=== PATIENT | female | born 1950 | race Caucasian/White ===

== ENCOUNTER → 2018-04-03 | Outpatient (CLI) | payer MEDICARE | END | disposition home or self-care (01) | LOC: PCVCCLINIC 14:45 | PROVIDERS: ATTEND Internal Medicine | DX: I48.0 Paroxysmal atrial fibrillation (principal); I10 Essential (primary) hypertension; K21.9 Gastro-esophageal reflux disease without esophagitis; Z79.899 Other long term (current) drug therapy | CPT/HCPCS: 93005; G0463 ==

== ENCOUNTER → 2018-04-16 | Outpatient (CLI) | payer MEDICARE ==
[~2018-04-16] MED LIST: REGADENOSON 0.4 MG/5 ML DISP.SYRIN. IV ONE
--- NOTE | 2018-04-16 10:00 | PCVCIMAG ---
APPROVED REPORT Study performed: 04/16/2018 08:05:19 EXAM: Comprehensive 2D, Doppler, and color-flow Echocardiogram Patient Location: Echo lab Status: routine BSA: 1.89 HR: 57 bpmBP: 130/100 mmHg Rhythm: NSR Other Information Study Quality: Good Risk Factors: Cardiac Risk Factors: HTN Indications Atrial Fibrillation Hypertension/HDD 2D Dimensions LVEF(%): 72.86 (>50%) IVSd: 12.00 (7-11mm)LVOT Diam: 20.65 (18-24mm) LVDd: 46.30 mm PWd: 9.16 (7-11mm)Ascending Ao: 38.74 (22-36mm) LVDs: 26.92 (25-40mm) Left Atrium: 49.06 (27-40mm) Aortic Root: 33.29 mm LV Single Plane 4CH: 62.64 % LV Single Plane 2CH: 61.34 %Pulido's LVEF: 61.99 % Biplane EF: 61.0 % Volumes Left Atrial Volume (Systole) Single Plane 4CH: 61.95 mLSingle Plane 2CH: 52.84 mL LA ESV Index: 32.00 mL/m2 Aortic Valve AoV Peak Kal.: 1.59 m/s AO Peak Gr.: 10.06 mmHgLVOT Max P.53 mmHg LVOT Max V: 0.94 m/s CORTNEY Vmax: 1.98 cm2 Mitral Valve E/A Ratio: 1.0 MV Decel. Time: 248.48 ms MV E Max Kal.: 1.06 m/s MV A Kal.: 1.05 m/s TDI E/Lateral E': 13.25E/Medial E': 13.25 Medial E' Kal.: 0.08 m/s Lateral E' Kal.: 0.08 m/s Pulmonary Vein P Vein S: 0.40 m/sP Vein A: 0.28 m/s P Vein D: 0.37 m/sP Vein A Dur.: 117.6 msec P Vein S/D Ratio: 1.08 Tricuspid Valve TR Peak Kal.: 2.20 m/s TR Peak Gr.: 19.33 mmHg Left Ventricle The left ventricle is normal size. There is normal LV segmental wall motion. There is normal left ventricular wall thickness. Left ventricular systolic function is normal. The left ventricular ejection fraction is within the normal range. LVEF is 60-65%. The left ventricular diastolic function is normal. Right Ventricle The right ventricle is normal size. The right ventricular systolic function is normal. Atria Left atrium is at the upper limits of normal. The right atrium size is normal. Aortic Valve The aortic valve is normal in structure. No aortic regurgitation is present. There is no aortic valvular stenosis. Mitral Valve The mitral valve is normal in structure. Mild mitral annular calcification. Trace mitral regurgitation. No evidence of mitral valve stenosis. Tricuspid Valve The tricuspid valve is normal in structure. Trace tricuspid regurgitation. Pulmonary artery pressure is 27mmhg. Pulmonic Valve The pulmonary valve is normal in structure. There is no pulmonic valvular regurgitation. Great Vessels The aortic root is normal in size. IVC is normal in size and collapses with >50% inspiration Pericardium There is no pericardial effusion. <Conclusion> The left ventricle is normal size. LVEF is 60-65%. The aortic valve is normal in structure. The mitral valve is normal in structure. Mild mitral annular calcification. Trace mitral regurgitation. The tricuspid valve is normal in structure. Trace tricuspid regurgitation. Pulmonary artery pressure is 27mmhg. The pulmonary valve is normal in structure. The aortic root is normal in size. There is no pericardial effusion.
--- NOTE | 2018-04-17 13:29 | PCVCIMAG ---
APPROVED REPORT Imaging Protocol: Rest Tc-99m/Stress Tc-99m 1 day Study performed: 04/16/2018 08:58:22 Indication: PAF Patient Location: Out-Patient Stress Nurse: KEY Pisano Tech:Jose Maria NMAARONB Ht: 5 ft 2 in Wt: 195 lbs BSA: 1.89 m2 HR: 71 bpm BP: 151/72 mmHg BMI: 35.6 Rhythm: SR, PAC's Medical History Medical History: Age, HTN, Afib Medications: Pantoprazole, Ranitidine, Micardis Allergies: No known drug allergies Pretest Chest Pain Characteristics: No chest pain Exercise History: Sedentary Physical Disabilities: Legs Resting Data Rest SPECT myocardial perfusion imaging was performed in supine position 45 minutes following the intravenous injection of 11.4 mCi of Tc-99m Sestamibi. Time of rest injection: 0850 Date: 04/16/2018 Administration Route: IV Administration Site: Right AC Pharmacologic Stress Pharmacologic stress test was performed by injecting Regadenoson 0.4 mg IV push over 10-15 seconds immediately followed by the intravenous injection of 33 mCi of Tc-99m Sestamibi. Time of stress injection: 1015 Date: 04/16/2018 Administration Route: IV Administration Site: Right AC Gated Stress SPECT was performed 45 minutes after stress injection. The images were gated to evaluate regional wall motion and calculate left ventricular ejection fraction. Stress Test Details Stress Test: Pharmacologic stress was paired with low level exercise. Reason for pharmacologic stress test: physical limitation. HRMax Heart Rate (APMHR): 154 bpm Resting HR: 71 bpmTarget HR (85% APMHR): 130 bpm Max HR Achieved: 122 bpm % of APMHR: 79 Recovery HR: 75 bpm BP Resting BP: 151/72 mmHg Recovery BP: 153/71 mmHg ECG Resting ECG: Sinus Rhythm Stress ECG: Sinus Tachycardia Arrhythmia: PAC's, PVC's Recovery ECG: Sinus Rhythm Clinical Reason for Termination: Completed protocol Stress Symptoms: Abdominal Discomfort, Nausea Exercise duration: 4 min sec Exercise capacity: 1.6 METs Symptoms resolved with caffeine. Stress ECG Conclusion 1. Adequate response to intravenous Lexiscan 2. Inadequate heart rate for ECG diagnosis Study Data Post stress, the left ventricular ejection was 72%.. SSS: 0 SRS: 4 SDS: 0 TID = 0.92. Perfusion There is a medium area of mildly reduced uptake in the entire segment of the apical wall which is seen on the stress images as well as the resting images. This area thickens and moves normally and is most consistent with attenuation artifact. Nuclear Conclusion ECG Findings: non-diagnostic Clinical Findings: negative for ischemia Nuclear Findings: negative for ischemia Exercise Capacity: not assessed Left Ventricular Function: normal 1. Low risk study Interpreted by: Estefania Nicholson MD Electronically Approved: 04/17/2018 13:28:51 <Conclusion> 1. Adequate response to intravenous Lexiscan 2. Inadequate heart rate for ECG diagnosis
== END | disposition home or self-care (01) ==
LOC: PCVCIMAG 08:14
PROVIDERS: ATTEND Internal Medicine
DX: I48.0 Paroxysmal atrial fibrillation (principal); I10 Essential (primary) hypertension; R53.83 Other fatigue
CPT/HCPCS: 78452; 93005; 93017; 93306; A9500; J2785

== ENCOUNTER → 2018-04-21 | Outpatient (CLI) | payer MEDICARE ==
[~2018-04-21] MED LIST changes: +LIDOCAINE 1%/EPI 1:100,000 20 ML VIAL. ONE; -REGADENOSON 0.4 MG/5 ML DISP.SYRIN. IV ONE
--- NOTE | 2018-04-23 09:47 | PCVCINTER ---
APPROVED REPORT Patient Location: Out-Patient Room #: 1 Stress Nurse: Procedure: Insertion of an implantable loop recorder Indications: A 67-year-old female patient with paroxysmal atrial fibrillation studies obtained to evaluate atrial fib burden. Brief description of procedure: After informed consent was obtained the patient was brought to the cardiac catheterization prep and hold. The left chest was prepped and draped in usual sterile manner and tracer position accordingly. Utilizing 1% lidocaine with epinephrine the skin was anesthetized that it we'll was raised. Using a 11 blade a small incision was then made. Utilizing both blunt dissection with the enclosed device as well as with a surgical forceps a track was developed. The device was then inserted without complications or issues. The subcutaneous tissue was then closed with 2 simple interrupted sutures covering the tract. The skin was then closed with 3-0 Vicryl in a subcuticular stitch. Steri-Strips 4 x 4 OpSite was then placed. Device is a [employer] implantable loop recorder. Serial number are noted in the chart. Conclusion 1. Successful implantation of a [employer] implantable loop recorder.
== END | disposition home or self-care (01) ==
LOC: PCVCINTER 13:00
PROVIDERS: ATTEND Internal Medicine
DX: Z45.09 Encounter for adjustment and management of other cardiac device (principal); I48.0 Paroxysmal atrial fibrillation
CPT/HCPCS: 33282; C1764; J3490

== ENCOUNTER → 2018-08-05 | Outpatient (CLI) | payer MEDICARE | END | disposition home or self-care (01) | LOC: PCVCCLINIC 15:28 | PROVIDERS: ATTEND Internal Medicine | DX: I48.0 Paroxysmal atrial fibrillation (principal); I10 Essential (primary) hypertension; K21.9 Gastro-esophageal reflux disease without esophagitis; M85.80 Other specified disorders of bone density and structure, unspecified site; Z88.8 Allergy status to other drugs, medicaments and biological substances | CPT/HCPCS: G0463 ==

== ENCOUNTER → 2019-07-27 | Outpatient (CLI) | payer MEDICARE | END | disposition home or self-care (01) | LOC: PCVCCLINIC 11:00 | PROVIDERS: ATTEND Internal Medicine | DX: I48.0 Paroxysmal atrial fibrillation (principal); I10 Essential (primary) hypertension; E78.5 Hyperlipidemia, unspecified; M85.88 Other specified disorders of bone density and structure, other site; Z88.8 Allergy status to other drugs, medicaments and biological substances; Z79.899 Other long term (current) drug therapy; Z98.51 Tubal ligation status; Z98.890 Other specified postprocedural states; Z90.89 Acquired absence of other organs; Z85.820 Personal history of malignant melanoma of skin; Z96.652 Presence of left artificial knee joint; Z90.09 Acquired absence of other part of head and neck; Z82.49 Family history of ischemic heart disease and other diseases of the circulatory system; Z82.3 Family history of stroke | CPT/HCPCS: 36415; 80061; 93005; G0463 ==

== ENCOUNTER → 2021-07-14 | Outpatient (CLI) | payer MEDICARE ==
--- NOTE | 2021-07-14 16:54 | RAD ---
EXAM: Dual modality PET-CT Scan DATE: 07/14/2021 RADIOPHARMACEUTICAL: 15 mCi F-18 fluorodeoxyglucose (FDG) IV. CLINICAL HISTORY: Follicular lymphoma. COMPARISON: None. TECHNIQUE: Approximately 45 minutes after tracer administration, routine, attenuation-corrected Posit janneth Emission Tomography (PET) images were obtained from the level of the base of the skull through th e level of the mid thighs. Tomographic reconstructions are reviewed in coronal, transaxial and sagitt al planes. Non-contrast CT imaging was performed for attenuation correction and localization purpose s only. These images do not constitute a diagnostic-quality CT examination and were not used to diag nose disease independently of the PET images. The blood glucose level was within acceptable limits at the time of FDG administration. *One or more of the following individualized dose reduction techniques were utilized for this examina tion: 1. Automated exposure control. 2. Adjustment of the mA and/or kV according to patient size. 3. Use of iterative reconstruction technique. FINDINGS: The exam is limited due to technique. Fused images of the mid abdomen and pelvis could not be post processed appropriately and SUV levels in this location cannot be obtained. There is intense radiotracer activity within SUV of 11.2 associated with a right posterior medial ple ural-based mass measuring approximately 8.0 cm x 2.0 cm in maximum dimensions. There are areas of mil d radiotracer activity along the left mid costovertebral junctions which demonstrate no convincing CT correlate. There is mild radiotracer activity within SUV of 2.6 associated with a 5 mm anterior left upper lobe pleural-based nodule. There are radiotracer avid nodules within the superior posterior neck with SUVs ranging from 6.0-11.0. These may be due to lymph nodes, difficult to confirm in the absence of contr ast-enhanced images. There is intense radiotracer activity with an uncertain SUV level associated with soft tissue anterio r to the lumbosacral junction. There is abnormal radiotracer activity surrounding a left knee arthroplasty, likely degenerative/infl ammatory in etiology. There is severe right knee osteoarthritis. The CT portion of the exam demonstrates a medial right midthoracic mass along the pleura measuring ap proximately 8.0 cm in maximum craniocaudal dimension and 2.7 cm in maximum thickness. There is a supe rimposed small right pleural effusion. The heart is normal in size. The aorta is normal in caliber. T here is aortic atherosclerosis. There are calcified hilar and right lung granulomas. There is no pneu mothorax. There is multifocal groundglass and linear opacity likely due to atelectasis. There is no c onsolidated pneumonia. There is no suspicious pulmonary nodule. There is scarring within both breasts likely due to prior reduction mammoplasty surgery. There are multiple areas of nodular asymmetry wit hin both breasts which may be due to scar/granulation tissue. There is a small hypodense lesion within the inferior right hepatic lobe, too small to characterize i n the absence of contrast. The gallbladder, pancreas, spleen and right adrenal gland are unremarkable . There is a tiny left adrenal adenoma or nodular thickening of the left adrenal gland. There is a mo derate hiatal hernia. The kidneys are unremarkable. No abnormally thickened or dilated loop of bowel is seen. The bladder is unremarkable. There is an enlarged uterus containing multiple fibroids, some which demonstrate calcification due to degeneration. No pathologically enlarged mesenteric or retrope ritoneal lymph node is seen. There is no inguinal lymphadenopathy. There is no axillary lymphadenopat hy. There is no mass effect or midline shift involving the brain. There is no hydrocephalus. The orbits a nd paranasal sinuses are unremarkable. No pathologically enlarged cervical chain lymph node is seen. There are multiple thyroid nodules. There are advanced degenerative changes throughout the spine. The re is advanced degenerative change involving the shoulders and bony pelvis. There are foci of gas wit hin the posterior right thorax likely due to relative recent pleural-based mass tissue sampling. IMPRESSION: 1. Medial right mid thoracic soft tissue mass along the pleura measuring approximately 8.0 cm in maxi mum dimension with an SUV of 11.2, consistent with reported follicular lymphoma. There is a small tomeka unt of gas within the posterior right back soft tissues likely due to recent biopsy of this lesion. N ote is made that the radiotracer activity extends to the right neural foramina at the mid thoracic le vels. Thoracic MRI may be useful to assess for possible extension into the central canal and neural i nvolvement. 2. Intense radiotracer activity associated with a soft tissue mass anterior to the lumbosacral juncti on. The imaging appearance favors additional lymphoma. 3. Small foci of radiotracer activity associated with nodules within the bilateral posterior superior neck, likely representing lymph nodes. These can be better assessed with a contrast-enhanced exam. T he SUV associated with these nodules ranges from 6.0-11.0. 4. 5 mm pleural-based nodule within the anterior left upper lobe with an SUV of 2.6. This degree of t racer activity in a nodule of this size favors neoplasm. 5. Small right pleural effusion. 6. Suspected scarring within both breasts due to reduction mammoplasty surgery. Correlate with mammog kezia findings. 7. Suspected tiny hepatic cyst, difficult to characterize in the absence of contrast. 8. Multiple uterine fibroids. 9. Multiple areas of abnormal radiotracer activity surrounding a left knee arthroplasty, likely degen erative or inflammatory. The possibility of a superimposed infectious etiology or a plaster loosening is not excluded. Correlate with dedicated knee radiographs. 10. Multiple thyroid nodules. Correlate with a thyroid sonogram. 11. Please refer to the above report for additional findings regarding the non-PET portion of the exa m. Electronically signed by: Mary Quispe MD (07/14/2021 4:51 PM) [id number]
== END ==
LOC: PETSC 13:12
PROVIDERS: ATTEND Internal Medicine
DX: C79.51 Secondary malignant neoplasm of bone (principal); C50.312 Malignant neoplasm of lower-inner quadrant of left female breast; C82.89 Other types of follicular lymphoma, extranodal and solid organ sites; R91.8 Other nonspecific abnormal finding of lung field; J90 Pleural effusion, not elsewhere classified; J84.10 Pulmonary fibrosis, unspecified; D25.9 Leiomyoma of uterus, unspecified; M17.11 Unilateral primary osteoarthritis, right knee; I70.0 Atherosclerosis of aorta; K44.9 Diaphragmatic hernia without obstruction or gangrene; N85.2 Hypertrophy of uterus; E04.2 Nontoxic multinodular goiter
CPT/HCPCS: 78816; A9552